=== PATIENT | female | born 1980 | race Caucasian/White ===

== ENCOUNTER → 2020-07-17 | Outpatient (CLI) | payer OTHER | LOC: M LABSMTC 10:20 | PROVIDERS: ATTEND Family Medicine | DX: Z20.828 Contact with and (suspected) exposure to other viral communicable diseases (principal) | CPT/HCPCS: C9803; U0003 ==

== ENCOUNTER → 2020-09-14 | Outpatient (REF) | payer OTHER | LOC: M SFHCWAGY 16:54 | PROVIDERS: ATTEND Nurse Practitioner Women's Health | DX: Z12.4 Encounter for screening for malignant neoplasm of cervix (principal); Z01.419 Encounter for gynecological examination (general) (routine) without abnormal findings ==

== ENCOUNTER → 2020-09-17 | Outpatient (CLI) | payer OTHER ==
--- NOTE | 2020-09-17 13:56 | REPMRS ---
Patient History The patient states she had a clinical breast exam in 09/30 Baseline Mammogram Patient is nulliparous. No known family history of cancer. Digital Woman Screen Mammo: September 17, 2020 - Exam #: [id number] Bilateral CC and MLO view(s) were taken. Technologist: Lissette Dillard, Technologist No prior studies available for comparison. FINDINGS: There are scattered fibroglandular densities. The Volpara volumetric breast density category is: B. There is no evidence of dominant mass, architectural distortion, or grouped microcalcification typical of malignancy. 3-D tomosynthesis shows no additional findings. Assessment: BI-RADS/ACR category 1 mammogram. Negative Mammogram. Recommendation Routine screening mammogram of both breasts in 1 year (for women over age 40). This patient's [facility] Lifetime Breast Cancer RIsk is estimated at 13.8 %. This mammogram was interpreted with the aid of an FDA-approved computer-aided dectection system. Electronically Signed By: Vikash Mondragon MD 09/17/20 [id number]
== END ==
LOC: M WHC 11:35
PROVIDERS: ATTEND Nurse Practitioner Women's Health
DX: Z12.31 Encounter for screening mammogram for malignant neoplasm of breast (principal)

== ENCOUNTER → 2020-09-26 | Outpatient (REF) | payer OTHER | LOC: M LAB REF 09:13 | PROVIDERS: ATTEND Physician Assistant Medical | DX: Z11.59 Encounter for screening for other viral diseases (principal) ==

== ENCOUNTER → 2021-04-22 | Outpatient (CLI) | payer OTHER ==
--- NOTE | 2021-04-22 12:50 | REP ---
INDICATION: L HAND INJURY. COMPARISON: None. TECHNIQUE: Four views of the left hand are provided. FINDINGS: Four views of the left hand demonstrate no evidence of fracture or subluxation. Overall mineralization pattern is normal.. There is a slightly expansile radiolucent lesion in the proximal end of the proximal phalanx of the ring finger consistent with a small enchondroma. This measures 9 x 9 x 12 mm. No evidence of arthropathy.. No opaque foreign body noted. IMPRESSION: Incidental enchondroma in the proximal end of the proximal phalanx of the ring finger. No traumatic abnormality noted.. <Electronically signed by Vikash Mondragon > 04/22/21 [id number]
== END ==
LOC: M RAD 12:20
PROVIDERS: ATTEND Physician Assistant Medical
DX: D16.9 Benign neoplasm of bone and articular cartilage, unspecified (principal)

== ENCOUNTER → 2022-11-03 | Outpatient (REF) | payer OTHER | LOC: M SFHCWAGY 16:48 | PROVIDERS: ATTEND Nurse Practitioner Family | DX: Z12.4 Encounter for screening for malignant neoplasm of cervix (principal) ==

== ENCOUNTER → 2022-11-03 | Outpatient (CLI) | payer OTHER | LOC: M WHC 13:56 | PROVIDERS: ATTEND Nurse Practitioner Family | DX: Z12.31 Encounter for screening mammogram for malignant neoplasm of breast (principal) ==

== ENCOUNTER → 2023-12-16 | Outpatient (REF) | payer OTHER | LOC: M LAB REF 10:23 | PROVIDERS: ATTEND Nurse Practitioner Family | DX: Z12.4 Encounter for screening for malignant neoplasm of cervix (principal) | CPT/HCPCS: 87624; G0123 ==

== ENCOUNTER → 2023-12-16 | Outpatient (CLI) | payer OTHER | LOC: M WHC 14:09 | PROVIDERS: ATTEND Nurse Practitioner Family | DX: Z12.31 Encounter for screening mammogram for malignant neoplasm of breast (principal) ==

== ENCOUNTER 2024-09-19 08:14 | Emergency (ER) | payer OTHER ==
[~2024-09-19] VITALS: Ht 162.6 cm; Wt 95.6 kg
[2024-09-19] MEDS ORDERED: AMOX875T2 (08:20)
[2024-09-19] MEDS ORDERED: ONDA-282 (08:20)
[2024-09-19] MEDS ORDERED: FLUC150T9 (08:20)
[2024-09-19] MEDS: AUGMENTIN 875 MG TAB PO ONE (12:00)
[2024-09-19] MEDS ORDERED: HYDR-3713 PO (12:06)
[2024-09-19 12:25] VITALS: BP 135/95; TEMP 97.6; O2SAT 99
== END 2024-09-19 12:27 | disposition home or self-care (01) ==
LOC: M ED 08:14
DX: S62.615A Displaced fracture of proximal phalanx of left ring finger, initial encounter for closed fracture (principal); W00.1XXA Fall from stairs and steps due to ice and snow, initial encounter; Y92.009 Unspecified place in unspecified non-institutional (private) residence as the place of occurrence of the external cause; Y93.9 Activity, unspecified; Y99.9 Unspecified external cause status; Z91.018 Allergy to other foods

== ENCOUNTER → 2024-09-19 | Outpatient (CLI) | payer OTHER ==
[~2024-09-19] MED LIST: AMOX875T2; FLUC150T9; HYDR-3713 PO; ONDA-282
== END ==
LOC: M SOG 13:13
PROVIDERS: ATTEND Physician Assistant
DX: S62.645A Nondisplaced fracture of proximal phalanx of left ring finger, initial encounter for closed fracture (principal); M79.645 Pain in left finger(s); Y93.9 Activity, unspecified; Y92.9 Unspecified place or not applicable

== ENCOUNTER 2024-09-23 06:11 | Day surgery (SDC) | payer OTHER ==
[~2024-09-23] VITALS: Ht 162.6 cm; Wt 93.9 kg
[2024-09-23] MEDS ORDERED: BACITRACIN OINTMENT 30GM TUBE ONE (06:12)
[2024-09-23] MEDS ORDERED: NS (Normal Saline) 0.9% 1,000 ML IV SCH ×2 (06:50→08:40)
[2024-09-23] MEDS ORDERED: LIDOCAINE 2% 100MG/5ML SDV (FOR ANES.) As Ordered ONE (06:57)
[2024-09-23] MEDS ORDERED: propofoL 200 MG/20 ML VIAL As Ordered ONE (06:57)
[2024-09-23] MEDS ORDERED: ONDANSETRON 4MG 2ML VIAL As Ordered ONE (06:57)
[2024-09-23] MEDS ORDERED: KETOROLAC 60MG 2ML VIAL As Ordered ONE (06:57)
[2024-09-23] MEDS ORDERED: MIDAZOLAM INJ 2MG/2ML VIAL As Ordered ONE (07:03)
[2024-09-23] MEDS ORDERED: fentaNYL 100 MCG/2 ML INJECTION As Ordered ONE (07:03)
[2024-09-23] MEDS ORDERED: ACETAMINOPHEN 1000MG/100ML IV BAG As Ordered ONE (08:01)
[2024-09-23] MEDS: ceFAZolin 2 GM/D5W 50 ML IV BAG As Ordered ONE (08:12)
[2024-09-23] MEDS: ceFAZolin SOD 2 GM in IV 1 EA IV ONE (08:20)
[2024-09-23] MEDS ORDERED: fentaNYL 100 MCG/2 ML INJECTION IV PRN (08:40)
[2024-09-23] MEDS ORDERED: HYDROMORPHONE HCL 0.5 MG/ 0.5 ML SYRINGE IV PRN (08:40)
[2024-09-23] MEDS ORDERED: ONDANSETRON 4MG 2ML VIAL IV PRN (08:40)
[2024-09-23] MEDS ORDERED: PERC5TAB12 PO (09:07)
[2024-09-23] MEDS: oxyCODONE 5MG TAB PO PRN (09:32)
[2024-09-23 09:40] VITALS: BP 163/94; TEMP 97.6; O2SAT 99
== END 2024-09-23 10:17 | disposition home or self-care (01) ==
LOC: M SDC 06:11
PROVIDERS: ATTEND Orthopaedic Surgery Hand Surgery
DX: S62.615A Displaced fracture of proximal phalanx of left ring finger, initial encounter for closed fracture (principal); Y93.9 Activity, unspecified; Y92.9 Unspecified place or not applicable; Z91.018 Allergy to other foods
CPT/HCPCS: 26727; 76000; J0131; J0665; J0690; J1100; J1885; J2250; J2405; J3010

== ENCOUNTER → 2024-09-29 | Outpatient (CLI) | payer OTHER ==
[~2024-09-29] MED LIST changes: +PERC5TAB12 PO
== END ==
LOC: M SOG 15:11
PROVIDERS: ATTEND Physician Assistant
DX: M79.645 Pain in left finger(s) (principal)

== ENCOUNTER → 2024-10-04 | Outpatient (REF) | payer OTHER | LOC: M LAB REF 11:47 | PROVIDERS: ATTEND Physician Assistant Medical | DX: R05.9 Cough, unspecified (principal) ==

== ENCOUNTER → 2024-10-27 | Outpatient (CLI) | payer OTHER | LOC: M SOG 08:44 | PROVIDERS: ATTEND Physician Assistant | DX: S62.615D Displaced fracture of proximal phalanx of left ring finger, subsequent encounter for fracture with routine healing (principal); M25.642 Stiffness of left hand, not elsewhere classified; Y93.9 Activity, unspecified; Y92.9 Unspecified place or not applicable ==

== ENCOUNTER → 2024-11-18 | Outpatient (CLI) | payer OTHER | LOC: M SOG 10:14 | PROVIDERS: ATTEND Physician Assistant | DX: S62.615D Displaced fracture of proximal phalanx of left ring finger, subsequent encounter for fracture with routine healing (principal) ==

== ENCOUNTER → 2025-01-17 | Outpatient (REF) | payer OTHER ==
[2025-01-20 15:52] LABS: HPV APTIMA Not Detected (Not Detected)
== END ==
LOC: M SFHCWAGY 17:51
PROVIDERS: ATTEND Advanced Practice Midwife
DX: Z12.4 Encounter for screening for malignant neoplasm of cervix (principal)
CPT/HCPCS: 87624; G0123

== ENCOUNTER → 2025-01-17 | Outpatient (CLI) | payer OTHER | LOC: M WHC 15:03 | PROVIDERS: ATTEND Advanced Practice Midwife | DX: Z12.31 Encounter for screening mammogram for malignant neoplasm of breast (principal) ==